=== PATIENT | female | born 1985 | race Caucasian/White ===

== ENCOUNTER 2023-07-24 10:12 | Inpatient (IN) | payer OTHER ==
[~2023-07-24] VITALS: Ht 162.6 cm; Wt 59.3 kg
[2023-07-24 10:52] LABS: HEMATOCRIT 42.5 % (36.0-47.0); HEMOGLOBIN 13.9 g/dl (12.0-15.5); MEAN CORPUSCULAR HEMOGLOBIN 29.2 pg (27.0-33.0); MEAN CORPUSCULAR HGB CONC 32.7 g/dl (32.0-36.5); MEAN CORPUSCULAR VOLUME 89.3 fl (80.0-96.0); PLATELET COUNT, AUTOMATED 263 10^3/uL (150-450); RED BLOOD COUNT 4.76 10^6/uL (4.00-5.40); WHITE BLOOD COUNT 5.8 10^3/uL (4.0-10.0)
[2023-07-24] MEDS ORDERED: HOME MED LIST COMPLETE! XX SCH (11:05)
[2023-07-24 11:23] LABS: AMPHETAMINES LEVEL URINE NEGATIVE (NEGATIVE); BARBITURATES URINE NEGATIVE (NEGATIVE); BENZODIAZEPINES URINE NEGATIVE (NEGATIVE); COCAINE METABOLITE URINE NEGATIVE (NEGATIVE); METHADONE URINE NEGATIVE (NEGATIVE); OPIATES URINE NEGATIVE (NEGATIVE); PHENCYCLIDINE URINE NEGATIVE (NEGATIVE)
[2023-07-24 11:25] LABS: ETHYL ALCOHOL (ETHANOL) < 0.003 % (0.000-0.010)
[2023-07-24 11:27] LABS: ALBUMIN 4.4 G/DL (3.2-5.2); ALKALINE PHOSPHATASE 59 U/L (46-116); ALT/SGPT 28 U/L (7.0-40); AST/SGOT 14 U/L (<34); BILIRUBIN,DIRECT 0.3 MG/DL (<0.4); BILIRUBIN,TOTAL 1.2 MG/DL (0.3-1.2); BLOOD UREA NITROGEN 8 MG/DL (9-23); CARBON DIOXIDE LEVEL 27 MMOL/L (20-31); CHLORIDE LEVEL 107 MMOL/L (98-107); CREATININE FOR GFR 0.81 MG/DL (0.55-1.30); GLOMERULAR FILTRATION RATE > 60.0 (>60); GLUCOSE, FASTING 96 MG/DL (60-100); SALICYLATE LEVEL < 3.0 MG/DL (<30); SODIUM LEVEL 142 MMOL/L (136-145); TOTAL PROTEIN 7.8 G/DL (5.7-8.2)
[2023-07-24 11:29] LABS: CANNABINOIDS URINE POSITIVE (NEGATIVE)
[2023-07-24 11:29] LABS: THYROID STIMULATING HORMONE 1.367 uIU/ML (0.55-4.78)
[2023-07-24 11:35] LABS: FREE T4 1.23 NG/DL (0.89-1.76)
[2023-07-24 11:36] LABS: HCG, SERUM QUALITATIVE NEGATIVE (NEGATIVE)
[2023-07-24] MEDS: ONDANSETRON 4MG ORAL DISINTEGRATING TAB PO ONE (11:52)
[2023-07-24] MEDS ORDERED: MAALOX 30 ML SUSP *UDC PO PRN (15:10)
[2023-07-24 16:00] VITALS: BP 109/67; TEMP 99.2
[2023-07-24] MEDS: ACETAMINOPHEN TAB 650MG DOSE (2X325MG) PO PRN (18:17)
[2023-07-24 20:20] VITALS: TEMP 97.7
[2023-07-24] MEDS: traZODone 50 MG TAB PO PRN (20:32)
[2023-07-24] MEDS: IBUPROFEN 400MG TAB PO PRN (20:33)
[2023-07-25 06:29] VITALS: BP 110/57; TEMP 98.6; O2SAT 98
[2023-07-25] MEDS: ESCITALOPRAM OXALATE 5MG TABLET (LEXAPRO) PO SCH (08:59)
[2023-07-25] MEDS: MOM 30ML SUSPENSION UDC PO PRN (10:23)
[2023-07-25 18:56] VITALS: BP 128/75; TEMP 99
[2023-07-25] MEDS: ARIPiprazole 2 MG TAB PO SCH (20:16)
[2023-07-25] MEDS: diphenhydrAMINE 25MG CAP PO PRN (23:41)
[2023-07-26 06:10] VITALS: BP 110/59; TEMP 98.9; O2SAT 99
[2023-07-26] MEDS: ESCITALOPRAM OXALATE 10 MG TAB (LEXAPRO) PO SCH (08:59)
[2023-07-26 18:14] VITALS: BP 135/84; TEMP 97.6
[2023-07-27 06:14] VITALS: BP 111/57; TEMP 98.9; O2SAT 96
[2023-07-27] MEDS ORDERED: TRAZ-252 PO (08:43)
[2023-07-27] MEDS ORDERED: ABIL1TAB13 PO (08:43)
[2023-07-27] MEDS ORDERED: HYDR-3363 PO (08:43)
[2023-07-27] MEDS ORDERED: LEXA1TAB PO (08:43)
== END 2023-07-27 10:30 | disposition home or self-care (01) | DRG 754 ==
LOC: M ED 10:12 → M ED INP 15:06 → M PSY 15:45
PROVIDERS: ADMIT Student in an Organized Health Care Education/Training Program; ATTEND Student in an Organized Health Care Education/Training Program
DX: F32.9 Major depressive disorder, single episode, unspecified (principal); R45.851 Suicidal ideations; F43.10 Post-traumatic stress disorder, unspecified; F90.9 Attention-deficit hyperactivity disorder, unspecified type; F17.200 Nicotine dependence, unspecified, uncomplicated; F12.90 Cannabis use, unspecified, uncomplicated; F41.9 Anxiety disorder, unspecified; F60.3 Borderline personality disorder; Z91.52 Personal history of nonsuicidal self-harm; Z91.411 Personal history of adult psychological abuse; Z91.51 Personal history of suicidal behavior

== ENCOUNTER 2024-02-03 23:18 | Emergency (ER) | payer MEDICAID, OTHER ==
[~2024-02-03] VITALS: Ht 162.6 cm; Wt 59.8 kg
[~2024-02-03 23:18] MED LIST: ABIL1TAB13 PO; HYDR-3363 PO; LEXA1TAB PO; TRAZ-252 PO
[2024-02-04 02:08] LABS: BASO % 0.7 % (0.0-1.0); EOS # 0.2 10^3/uL (0.0-0.5); EOS % 2.5 % (0.0-3.0); HEMATOCRIT 33.4 % (36.0-47.0); HEMOGLOBIN 11.4 g/dl (12.0-15.5); LYMPH # 2.5 10^3/uL (1.5-5.0); LYMPH % 40.8 % (24.0-44.0); MEAN CORPUSCULAR HEMOGLOBIN 29.1 pg (27.0-33.0); MEAN CORPUSCULAR HGB CONC 34.1 g/dl (32.0-36.5); MEAN CORPUSCULAR VOLUME 85.2 fl (80.0-96.0); MONO # 0.6 10^3/uL (0.0-0.8); NEUTROPHILS # 2.9 10^3/uL (1.5-8.5); NEUTROPHILS % 46.8 % (36.0-66.0); PLATELET COUNT, AUTOMATED 197 10^3/uL (150-450); RED BLOOD COUNT 3.92 10^6/uL (4.00-5.40); WHITE BLOOD COUNT 6.1 10^3/uL (4.0-10.0)
[2024-02-04 02:39] LABS: BLOOD UREA NITROGEN 10 MG/DL (9-23); CALCIUM LEVEL 9.3 MG/DL (8.5-10.1); CARBON DIOXIDE LEVEL 24 MMOL/L (20-31); CHLORIDE LEVEL 107 MMOL/L (98-107); CK-MB VALUE MASS < 1.0 NG/ML (<3.6); CREATININE FOR GFR 0.77 MG/DL (0.55-1.30); GLOMERULAR FILTRATION RATE > 60.0 (>60); GLUCOSE, FASTING 97 MG/DL (60-100); SODIUM LEVEL 139 MMOL/L (136-145)
[2024-02-04 02:41] LABS: THYROID STIMULATING HORMONE 1.712 uIU/ML (0.55-4.78)
[2024-02-04 02:42] LABS: FREE T4 0.87 NG/DL (0.89-1.76)
[2024-02-04 02:50] LABS: CPK CREATINE PHOSPHOKINASE 74 U/L (34-145); MB/CK RELATIVE INDEX 1.35 (< OR =4)
[2024-02-04 03:00] VITALS: TEMP 98.3
[2024-02-04 03:33] VITALS: BP 99/56; O2SAT 99
[2024-02-04 03:50] LABS: CK-MB VALUE MASS < 1.0 NG/ML (<3.6)
[2024-02-04 03:52] LABS: CPK CREATINE PHOSPHOKINASE 69 U/L (34-145); MB/CK RELATIVE INDEX 1.44 (< OR =4)
== END 2024-02-04 03:33 | disposition home or self-care (01) ==
LOC: M ED 23:18
DX: R07.89 Other chest pain (principal); I45.10 Unspecified right bundle-branch block; F41.9 Anxiety disorder, unspecified; F17.290 Nicotine dependence, other tobacco product, uncomplicated; Z79.899 Other long term (current) drug therapy

== ENCOUNTER 2024-04-21 15:09 | Emergency (ER) | payer OTHER ==
[~2024-04-21] VITALS: Ht 162.6 cm; Wt 63.7 kg
[2024-04-21] MEDS ORDERED: DOXE10CA (15:22)
[2024-04-21 15:54] LABS: BASO % 0.5 % (0.0-1.0); EOS # 0.1 10^3/uL (0.0-0.5); EOS % 1.8 % (0.0-3.0); HEMATOCRIT 39.4 % (36.0-47.0); HEMOGLOBIN 13.1 g/dl (12.0-15.5); LYMPH # 2.1 10^3/uL (1.5-5.0); LYMPH % 36.3 % (24.0-44.0); MEAN CORPUSCULAR HGB CONC 33.2 g/dl (32.0-36.5); MEAN CORPUSCULAR VOLUME 90.4 fl (80.0-96.0); MONO # 0.5 10^3/uL (0.0-0.8); MONO % 8.5 % (2.0-8.0); NEUTROPHILS % 52.7 % (36.0-66.0); PLATELET COUNT, AUTOMATED 190 10^3/uL (150-450); RED BLOOD COUNT 4.36 10^6/uL (4.00-5.40); WHITE BLOOD COUNT 5.6 10^3/uL (4.0-10.0)
[2024-04-21 15:58] LABS: ERYTHROCYTE SEDIMENTATION RATE 5 mm/hr (0-20)
[2024-04-21 16:19] LABS: CK-MB VALUE MASS < 1.0 NG/ML (<3.6); LIPASE 47 U/L (12-53)
[2024-04-21 16:21] LABS: ALBUMIN 3.6 G/DL (3.2-5.2); ALKALINE PHOSPHATASE 43 U/L (35-104); ALT/SGPT 17 U/L (7.0-40); AST/SGOT 8 U/L (<34); BILIRUBIN,DIRECT 0.2 MG/DL (<0.4); BILIRUBIN,TOTAL 0.7 MG/DL (0.3-1.2); BLOOD UREA NITROGEN 10 MG/DL (9-23); CALCIUM LEVEL 8.5 MG/DL (8.5-10.1); CARBON DIOXIDE LEVEL 26 MMOL/L (20-31); CHLORIDE LEVEL 107 MMOL/L (98-107); CPK CREATINE PHOSPHOKINASE 45 U/L (34-145); CREATININE FOR GFR 0.84 MG/DL (0.55-1.30); GLOMERULAR FILTRATION RATE > 60.0 (>60); GLUCOSE, FASTING 85 MG/DL (60-100); MAGNESIUM LEVEL 2.1 MG/DL (1.8-2.4); MB/CK RELATIVE INDEX 2.22 (< OR =4); POTASSIUM SERUM 3.7 MMOL/L (3.5-5.1); SODIUM LEVEL 140 MMOL/L (136-145); TOTAL PROTEIN 6.7 G/DL (5.7-8.2)
[2024-04-21 16:22] LABS: HCG, SERUM QUALITATIVE NEGATIVE (NEGATIVE)
[2024-04-21] MEDS: NS (Normal Saline) 0.9% 1,000 ML IV ONE (16:35)
[2024-04-21] MEDS ORDERED: ISOVUE-370 76% 100ML VIAL As Ordered ONE (16:37)
[2024-04-21] MEDS: KETOROLAC 30 MG/ML 1ML VIAL IV ONE (16:53)
[2024-04-21 17:35] LABS: CK-MB VALUE MASS < 1.0 NG/ML (<3.6)
[2024-04-21 17:37] LABS: CPK CREATINE PHOSPHOKINASE 43 U/L (34-145); MB/CK RELATIVE INDEX 2.32 (< OR =4)
[2024-04-21 18:02] VITALS: BP 109/58; TEMP 97.3; O2SAT 100
== END 2024-04-21 18:17 | disposition home or self-care (01) ==
LOC: M ED 15:09
DX: R07.9 Chest pain, unspecified (principal); I45.10 Unspecified right bundle-branch block; F41.9 Anxiety disorder, unspecified; F43.10 Post-traumatic stress disorder, unspecified; Z79.899 Other long term (current) drug therapy
CPT/HCPCS: 71045; 71275; 80048; 80076; 82550; 82553; 83690; 83735; 84484; 84703; 85025; 85652; 93005; 93041; 94760; 96361; 96374; 99284; J1885; Q9967

== ENCOUNTER 2024-10-09 04:50 | Emergency (ER) | payer OTHER ==
[~2024-10-09] VITALS: Ht 162.6 cm; Wt 65.9 kg
[~2024-10-09 04:50] MED LIST changes: +DOXE10CA
[2024-10-09 07:00] LABS: BASO # 0.0 10^3/uL (0.0-0.2); BASO % 0.4 % (0.0-1.0); EOS # 0.1 10^3/uL (0.0-0.5); EOS % 1.0 % (0.0-3.0); LYMPH # 1.4 10^3/uL (1.5-5.0); LYMPH % 19.0 % (24.0-44.0); MONO # 0.6 10^3/uL (0.0-0.8); MONO % 8.1 % (2.0-8.0); NEUTROPHILS # 5.1 10^3/uL (1.5-8.5); NEUTROPHILS % 71.2 % (36.0-66.0); PLATELET COUNT, AUTOMATED 168 10^3/uL (150-450)
[2024-10-09 07:21] LABS: FREE T4 0.99 NG/DL (0.89-1.76)
[2024-10-09 07:27] LABS: ETHYL ALCOHOL (ETHANOL) < 0.003 % (0.000-0.010)
[2024-10-09 07:29] LABS: ALT/SGPT 183 U/L (7.0-40); AST/SGOT 256 U/L (<34); CALCIUM LEVEL 8.6 MG/DL (8.5-10.1); CARBON DIOXIDE LEVEL 24 MMOL/L (20-31); CHLORIDE LEVEL 109 MMOL/L (98-107); CK-MB VALUE MASS < 1.0 NG/ML (<3.6); CPK CREATINE PHOSPHOKINASE 84 U/L (34-145); CREATININE FOR GFR 0.78 MG/DL (0.55-1.30); GLOMERULAR FILTRATION RATE > 90.0 (>60); POTASSIUM SERUM 4.0 MMOL/L (3.5-5.1); SALICYLATE LEVEL < 3.0 MG/DL (<30); SODIUM LEVEL 145 MMOL/L (136-145)
[2024-10-09] MEDS: NS (Normal Saline) 0.9% 1,000 ML IV ONE ×2 (07:29→08:57)
[2024-10-09 08:04] LABS: CK-MB VALUE MASS < 1.0 NG/ML (<3.6)
[2024-10-09 08:05] LABS: CPK CREATINE PHOSPHOKINASE 82 U/L (34-145)
[2024-10-09 08:11] LABS: HCG, SERUM QUALITATIVE NEGATIVE (NEGATIVE)
[2024-10-09 08:33] LABS: MAGNESIUM LEVEL 2.0 MG/DL (1.8-2.4)
[2024-10-09] MEDS ORDERED: HYDR50TA70 PO (09:01)
[2024-10-09] MEDS ORDERED: ONDA-282 PO (09:01)
[2024-10-09] MEDS ORDERED: LEXA1TAB PO (09:01)
[2024-10-09] MEDS ORDERED: QUET1TAB17 PO (09:01)
[2024-10-09] MEDS ORDERED: HOME MED LIST COMPLETE! XX SCH (09:05)
[2024-10-09 09:18] LABS: AMPHETAMINES LEVEL URINE NEGATIVE (NEGATIVE); BARBITURATES URINE NEGATIVE (NEGATIVE); BENZODIAZEPINES URINE NEGATIVE (NEGATIVE); CANNABINOIDS URINE NEGATIVE (NEGATIVE); COCAINE METABOLITE URINE NEGATIVE (NEGATIVE); METHADONE URINE NEGATIVE (NEGATIVE); OPIATES URINE NEGATIVE (NEGATIVE); PHENCYCLIDINE URINE NEGATIVE (NEGATIVE)
[2024-10-09 10:56] VITALS: BP 101/62; TEMP 98.8; O2SAT 100
== END 2024-10-09 10:58 | disposition home or self-care (01) ==
LOC: M ED 04:50
DX: R00.2 Palpitations (principal); R74.01 Elevation of levels of liver transaminase levels; I45.10 Unspecified right bundle-branch block; F10.10 Alcohol abuse, uncomplicated; F41.9 Anxiety disorder, unspecified; F32.A Depression, unspecified; Z87.891 Personal history of nicotine dependence; Z79.899 Other long term (current) drug therapy

== ENCOUNTER 2024-11-03 06:44 | Emergency (ER) | payer OTHER, SELFPAY ==
[~2024-11-03] VITALS: Ht 162.6 cm; Wt 65.9 kg
[~2024-11-03 06:44] MED LIST changes: +HYDR50TA70 PO; +ONDA-282 PO; +QUET1TAB17 PO
[2024-11-03 07:11] LABS: BASO # 0.1 10^3/uL (0.0-0.2); BASO % 0.8 % (0.0-1.0); EOS # 0.1 10^3/uL (0.0-0.5); EOS % 1.8 % (0.0-3.0); LYMPH # 1.9 10^3/uL (1.5-5.0); LYMPH % 32.5 % (24.0-44.0); MONO # 0.6 10^3/uL (0.0-0.8); MONO % 9.5 % (2.0-8.0); NEUTROPHILS # 3.3 10^3/uL (1.5-8.5); NEUTROPHILS % 55.2 % (36.0-66.0); PLATELET COUNT, AUTOMATED 182 10^3/uL (150-450)
[2024-11-03 07:39] LABS: CK-MB VALUE MASS < 1.0 NG/ML (<3.6)
[2024-11-03 07:40] LABS: CALCIUM LEVEL 8.5 MG/DL (8.5-10.1); CARBON DIOXIDE LEVEL 24 MMOL/L (20-31); CHLORIDE LEVEL 110 MMOL/L (98-107); CPK CREATINE PHOSPHOKINASE 120 U/L (34-145); CREATININE FOR GFR 0.70 MG/DL (0.55-1.30); GLOMERULAR FILTRATION RATE > 90.0 (>60); POTASSIUM SERUM 3.8 MMOL/L (3.5-5.1); SODIUM LEVEL 145 MMOL/L (136-145)
[2024-11-03 09:15] LABS: CK-MB VALUE MASS < 1.0 NG/ML (<3.6)
[2024-11-03 09:16] LABS: CPK CREATINE PHOSPHOKINASE 118 U/L (34-145)
[2024-11-03] MEDS: NS (Normal Saline) 0.9% 1,000 ML IV ONE (10:15)
[2024-11-03 10:39] LABS: ERYTHROCYTE SEDIMENTATION RATE 5 mm/hr (0-20)
[2024-11-03 11:04] LABS: HCG, SERUM QUALITATIVE NEGATIVE (NEGATIVE)
[2024-11-03 11:11] LABS: C REACTIVE PROTEIN QUANTITATIV < 0.50 MG/DL (<1.0)
[2024-11-03 12:03] LABS: AMPHETAMINES LEVEL URINE NEGATIVE (NEGATIVE); BARBITURATES URINE NEGATIVE (NEGATIVE); BENZODIAZEPINES URINE NEGATIVE (NEGATIVE)
[2024-11-03 12:04] LABS: CANNABINOIDS URINE NEGATIVE (NEGATIVE); COCAINE METABOLITE URINE NEGATIVE (NEGATIVE); METHADONE URINE NEGATIVE (NEGATIVE); OPIATES URINE NEGATIVE (NEGATIVE); PHENCYCLIDINE URINE NEGATIVE (NEGATIVE)
[2024-11-03 13:25] VITALS: BP 120/72; TEMP 98.1; O2SAT 99
== END 2024-11-03 13:35 | disposition home or self-care (01) ==
LOC: M ED 06:44
DX: R07.9 Chest pain, unspecified (principal); E78.5 Hyperlipidemia, unspecified; F41.9 Anxiety disorder, unspecified; F32.A Depression, unspecified; Z86.79 Personal history of other diseases of the circulatory system; Z79.899 Other long term (current) drug therapy